=== PATIENT | male | born 1945 | race Two or more races ===

== ENCOUNTER 2019-04-24 10:10 | Inpatient (IN) | payer OTHER ==
[~2019-04-24] VITALS: Ht 188 cm; Wt 128.0 kg
[2019-04-24 11:15] LABS: Basophils # (auto) 0.1 uL; Basophils % (auto) 1.1 % (0.0-2.0); Eosinophils # (auto) 0 uL; Eosinophils % (auto) 0.5 % (0.0-7.0); Hematocrit 49.9 % (41.0-53.0); Lymphocytes # (auto) 0.8 uL; Lymphocytes % (auto) 14.4 % (10.0-50.0); Mean Corpuscular Hemoglobin 31.3 pg (28.0-32.0); Mean Corpuscular Hgb Conc. 34.1 g/dL (32.0-36.0); Mean Corpuscular Volume 91.8 fL (80.0-100.0); Monocytes # (auto) 0.5 uL; Monocytes % (auto) 9.1 % (0.0-12.0); Neutrophils # (auto) 4.3 uL; Neutrophils % (auto) 74.9 % (37.0-80.0); Nucleated Red Blood Cells % 0.1 %; Platelet Count (auto) 188 10^3/uL (140-450); Red Blood Cells 5.43 10^6/uL (4.5-5.90); Red Cell Distribution Width 14.4 % (11.8-14.3); White Blood Cell 5.8 10^3/uL (4.4-10.8)
[2019-04-24] MEDS ORDERED: SODIUM CHLORIDE 0.9% 1,000 ML IV ONE (11:35)
[2019-04-24 11:37] LABS: Alanine Aminotransferase 45 U/L (16-61); Albumin 3.4 g/dL (3.4-5.0); Anion Gap 8 (5-15); Aspartate Aminotransferase 41 U/L (15-37); BUN/Creatinine Ratio 16.7; Blood Urea Nitrogen 32 mg/dL (7-18); Calcium 9.3 mg/dL (8.5-10.1); Carbon Dioxide 23 mmol/L (21-32); Chloride 108 mmol/L (98-107); GFR African American 45 mL/min; GFR Non-African American 37 mL/min; Glucose 145 mg/dL (74-106); Potassium 4.2 mmol/L (3.5-5.1); Sodium 139 mmol/L (136-145)
[2019-04-24 11:43] LABS: Alkaline Phosphatase 108 U/L (45-117); Bilirubin, Total 0.5 mg/dL (0.2-1.0); Total Protein 7.9 g/dL (6.4-8.2)
[2019-04-24] MEDS ORDERED: KETOROLAC TROMETH 30 MG/ML 1ML VIAL IV ONE (11:45)
[2019-04-24] MEDS ORDERED: TAMSULOSIN HYDROCHLORIDE 0.4 MG CAP PO ONE (11:45)
[2019-04-24] MEDS ORDERED: ONDANSETRON HCL 4 MG/2 ML VIAL IV ONE (11:45)
[2019-04-24] MEDS ORDERED: cefTRIAXone 1GM/50ML D5W 50 ML IV ONE ×2 (12:00→13:45)
[2019-04-24 12:35] LABS: Urine Bacteria NONE SEEN /hpf (None Seen); Urine Blood TRACE /uL (Negative); Urine WBC 3 /hpf (0 - 3)
[2019-04-24] MEDS ORDERED: DEXTROSE (50%) 50ML SYRG IV PRN (13:45)
[2019-04-24] MEDS ORDERED: PROMETHAZINE HCL 25 MG/ML 1ML IV PRN (13:45)
[2019-04-24] MEDS ORDERED: ACETAMINOPHEN 500 MG TAB PO PRN (13:45)
[2019-04-24] MEDS ORDERED: LORazepam 0.5 MG TAB PO PRN (13:45)
[2019-04-24] MEDS: SODIUM CHLORIDE 0.9% 1,000 ML IV SCH ×2 (13:48→23:47)
[2019-04-24] MEDS ORDERED: [UNRECOGNIZED DRUG - CODE] PO (14:35)
[2019-04-24] MEDS ORDERED: LOSA-39 PO (14:35)
[2019-04-24] MEDS ORDERED: LOPE1TAB9 PO (14:35)
[2019-04-24] MEDS ORDERED: MAGN400T5 OR (14:35)
[2019-04-24] MEDS ORDERED: TERA10CA36 PO (14:35)
[2019-04-24] MEDS ORDERED: AMLO5TAB15 PO (14:35)
[2019-04-24] MEDS ORDERED: HCTZ25T PO (14:35)
[2019-04-24] MEDS ORDERED: OME20T PO (14:35)
[2019-04-24] MEDS ORDERED: CHOLTAB14 PO (14:35)
[2019-04-24] MEDS ORDERED: GLIP10TA9 PO (14:35)
[2019-04-24] MEDS ORDERED: METO-158 PO (14:35)
[2019-04-24] MEDS ORDERED: MANNITOL FTV 25% 12.5 GM/50 ML 50 ML IV ONE (16:00)
[2019-04-24 17:00] VITALS: BP 134/51
[2019-04-24] MEDS: InsuLIN REG 1unit/0.01ml Soln (100units/ml) SC SCH ×2 (17:00→21:37)
[2019-04-24] MEDS: ACCU-CHEK COMFORT CURVE STRIP VI SCH ×2 (17:08→21:37)
[2019-04-24] MEDS: TAMSULOSIN HYDROCHLORIDE 0.4 MG CAP PO SCH (17:09)
[2019-04-24] MEDS: METOPROLOL TARTRATE 50 MG TAB PO SCH (21:33)
[2019-04-24] MEDS: traMADol HCL 50 MG TAB PO PRN (21:33)
[2019-04-24 22:00] VITALS: BP 138/72
[2019-04-25] VITALS (7 sets, daily range): BP systolic 129–144; BP diastolic 65–83
[2019-04-25] MEDS ORDERED: KETOROLAC TROMETH 30 MG/ML 1ML VIAL IV ONE ×2 (03:00→11:45)
[2019-04-25] MEDS: traMADol HCL 50 MG TAB PO PRN (04:55)
[2019-04-25] MEDS ORDERED: METF-370 PO (05:01)
[2019-04-25] MEDS: ACCU-CHEK COMFORT CURVE STRIP VI SCH ×4 (06:30→21:51)
[2019-04-25] MEDS: InsuLIN REG 1unit/0.01ml Soln (100units/ml) SC SCH ×4 (06:30→21:52)
[2019-04-25] MEDS: SODIUM CHLORIDE 0.9% 1,000 ML IV SCH ×2 (07:30→19:40)
[2019-04-25] MEDS: cefTRIAXone 1GM/50ML D5W 50 ML IV SCH (08:59)
[2019-04-25] MEDS: LOSARTAN POTASSIUM 50 MG TAB PO SCH (09:00)
[2019-04-25] MEDS: amLODIPine BESYLATE 5 MG TAB PO SCH (09:00)
[2019-04-25] MEDS: PANTOPRAZOLE 40 MG TAB PO SCH (09:00)
[2019-04-25] MEDS: METOPROLOL TARTRATE 50 MG TAB PO SCH ×3 (09:01→22:53)
[2019-04-25] MEDS: TAMSULOSIN HYDROCHLORIDE 0.4 MG CAP PO SCH (17:31)
[2019-04-25] MEDS: HYDROcodone-ACET 7.5/325MG TAB PO PRN (19:38)
[2019-04-25] MEDS: TEMAZEPAM 15 MG CAP PO PRN (21:55)
[2019-04-26] MEDS: KETOROLAC TROMETH 30 MG/ML 1ML VIAL IV PRN ×3 (04:18→21:33)
[2019-04-26 05:00] VITALS: BP 150/69
[2019-04-26] MEDS: SODIUM CHLORIDE 0.9% 1,000 ML IV SCH ×2 (05:41→16:04)
[2019-04-26] MEDS: ACCU-CHEK COMFORT CURVE STRIP VI SCH ×4 (06:59→22:53)
[2019-04-26] MEDS: InsuLIN REG 1unit/0.01ml Soln (100units/ml) SC SCH ×4 (07:00→22:53)
[2019-04-26 09:00] VITALS: BP 154/79
[2019-04-26] MEDS: cefTRIAXone 1GM/50ML D5W 50 ML IV SCH (10:23)
[2019-04-26] MEDS: amLODIPine BESYLATE 5 MG TAB PO SCH (10:24)
[2019-04-26] MEDS: PANTOPRAZOLE 40 MG TAB PO SCH (10:24)
[2019-04-26] MEDS: LOSARTAN POTASSIUM 50 MG TAB PO SCH (10:24)
[2019-04-26] MEDS: METOPROLOL TARTRATE 50 MG TAB PO SCH ×2 (10:25→22:50)
[2019-04-26 13:00] VITALS: BP 145/66
[2019-04-26 17:00] VITALS: BP 155/84
[2019-04-26] MEDS: HYDROcodone-ACET 7.5/325MG TAB PO PRN (17:27)
[2019-04-26] MEDS: TAMSULOSIN HYDROCHLORIDE 0.4 MG CAP PO SCH (17:32)
[2019-04-26 21:56] VITALS: BP 148/69
[2019-04-27] MEDS: TEMAZEPAM 15 MG CAP PO PRN ×2 (00:49→21:00)
[2019-04-27] MEDS: SODIUM CHLORIDE 0.9% 1,000 ML IV SCH ×3 (04:20→21:40)
[2019-04-27 04:34] VITALS: BP 140/72
[2019-04-27] MEDS: ACCU-CHEK COMFORT CURVE STRIP VI SCH ×4 (06:46→22:21)
[2019-04-27] MEDS: InsuLIN REG 1unit/0.01ml Soln (100units/ml) SC SCH ×4 (06:46→22:00)
[2019-04-27 09:00] VITALS: BP 143/70
[2019-04-27] MEDS: cefTRIAXone 1GM/50ML D5W 50 ML IV SCH (09:06)
[2019-04-27] MEDS: amLODIPine BESYLATE 5 MG TAB PO SCH (11:11)
[2019-04-27] MEDS: PANTOPRAZOLE 40 MG TAB PO SCH (11:11)
[2019-04-27] MEDS: METOPROLOL TARTRATE 50 MG TAB PO SCH ×2 (11:11→22:21)
[2019-04-27] MEDS: LOSARTAN POTASSIUM 50 MG TAB PO SCH (11:12)
[2019-04-27] MEDS: HYDROcodone-ACET 7.5/325MG TAB PO PRN (11:15)
[2019-04-27 13:00] VITALS: BP 152/64
[2019-04-27] MEDS ORDERED: MANNITOL FTV 25% 12.5 GM/50 ML 50 ML IV ONE (16:00)
[2019-04-27 16:56] VITALS: BP 141/77
[2019-04-27 17:27] LABS: Basophils # (auto) 0.1 uL; Basophils % (auto) 0.9 % (0.0-2.0); Eosinophils # (auto) 0.2 uL; Hematocrit 44.5 % (41.0-53.0); Hemoglobin 15.1 g/dL (13.5-17.5); Lymphocytes # (auto) 1.6 uL; Lymphocytes % (auto) 19.4 % (10.0-50.0); Mean Corpuscular Hemoglobin 31.4 pg (28.0-32.0); Mean Corpuscular Hgb Conc. 33.9 g/dL (32.0-36.0); Mean Corpuscular Volume 92.4 fL (80.0-100.0); Monocytes # (auto) 1.3 uL; Monocytes % (auto) 15.4 % (0.0-12.0); Neutrophils # (auto) 5.3 uL; Neutrophils % (auto) 62.3 % (37.0-80.0); Nucleated Red Blood Cells % 0.2 %; Platelet Count (auto) 160 10^3/uL (140-450); Red Blood Cells 4.81 10^6/uL (4.5-5.90); Red Cell Distribution Width 14.3 % (11.8-14.3); White Blood Cell 8.5 10^3/uL (4.4-10.8)
[2019-04-27 17:34] LABS: BUN/Creatinine Ratio 15.6; Calcium 8.1 mg/dL (8.5-10.1); Potassium 4.4 mmol/L (3.5-5.1)
[2019-04-27] MEDS: TAMSULOSIN HYDROCHLORIDE 0.4 MG CAP PO SCH (18:06)
[2019-04-27] MEDS: KETOROLAC TROMETH 30 MG/ML 1ML VIAL IV PRN (20:47)
[2019-04-27 22:00] VITALS: BP 150/73
[2019-04-27 23:53] VITALS: BP 140/68
[2019-04-28 05:00] VITALS: BP 140/74
[2019-04-28] MEDS: InsuLIN REG 1unit/0.01ml Soln (100units/ml) SC SCH ×2 (06:45→11:30)
[2019-04-28] MEDS: ACCU-CHEK COMFORT CURVE STRIP VI SCH ×2 (06:45→11:30)
[2019-04-28] MEDS: SODIUM CHLORIDE 0.9% 1,000 ML IV SCH (07:40)
[2019-04-28 09:00] VITALS: BP 147/85
[2019-04-28] MEDS: PANTOPRAZOLE 40 MG TAB PO SCH (09:55)
[2019-04-28] MEDS: cefTRIAXone 1GM/50ML D5W 50 ML IV SCH (09:55)
[2019-04-28] MEDS: LOSARTAN POTASSIUM 50 MG TAB PO SCH (09:56)
[2019-04-28] MEDS: METOPROLOL TARTRATE 50 MG TAB PO SCH (10:01)
[2019-04-28] MEDS: amLODIPine BESYLATE 5 MG TAB PO SCH (10:02)
[2019-04-28 11:14] VITALS: BP 147/85
== END 2019-04-28 11:45 | disposition home or self-care (01) | DRG 690 ==
LOC: ER 10:15 → OVERFLOW 10:16 → EAST 14:57
PROVIDERS: ADMIT Internal Medicine; ATTEND Family Medicine
DX: N13.6 Pyonephrosis (principal); N17.9 Acute kidney failure, unspecified; E11.22 Type 2 diabetes mellitus with diabetic chronic kidney disease; E11.21 Type 2 diabetes mellitus with diabetic nephropathy; R79.89 Other specified abnormal findings of blood chemistry; I12.9 Hypertensive chronic kidney disease with stage 1 through stage 4 chronic kidney disease, or unspecified chronic kidney disease; K57.30 Diverticulosis of large intestine without perforation or abscess without bleeding; K44.9 Diaphragmatic hernia without obstruction or gangrene; K74.60 Unspecified cirrhosis of liver; K76.0 Fatty (change of) liver, not elsewhere classified; N18.3 Chronic kidney disease, stage 3 (moderate); N43.3 Hydrocele, unspecified; R16.0 Hepatomegaly, not elsewhere classified; Z85.46 Personal history of malignant neoplasm of prostate; Z79.899 Other long term (current) drug therapy
CPT/HCPCS: 36415; 74176; 80048; 80053; 81001; 82962; 83036; 84484; 85025; 87086; 93005; 94660; 96365; 96375; G0378; J0696; J1885; J2405